=== PATIENT | male | born 1950 | race Caucasian/White ===

== ENCOUNTER → 2017-06-12 | Outpatient (CLI) | payer MEDICARE, OTHER ==
--- NOTE | 2017-06-12 08:45 | MR ---
EXAMINATION TYPE: MR cspine/tspine/lspine wo con DATE OF EXAM: 06/12/2017 COMPARISON: Outside MRI thoracic spine March 15, 2013 HISTORY: Cervical and thoracic spine pain and lumbago per order. Neck pain for one year causing pain and numbness and tingling in hands and feet. Mid back pain for 5 to 6 years. Low back pain for 10 yea rs causing pain into right lower extremity all per patient. TECHNIQUE: Multiplanar, multisequence imaging of the cervical, thoracic, and lumbar spine are all per formed without IV contrast. FINDINGS: C-SPINE: FINDINGS: Sagittal images of the cervical spine show the craniocervical junction to appear within nor mal limits. The cervical and upper thoracic spinal cord is normal in course, caliber, and signal. V ertebral alignment is anatomic. The vertebral body heights are normal. There is mild disc space narr owing C4-C5 and C5-C6 levels. Small posterior disc herniations are seen at C5-C6 and C6-C7 levels on sagittal images. Mild anterior spurring lower cervical levels is noted. The bone marrow signal intens ity is within normal limits. Axial images show the C2-C3 level to appear within normal limits. Axial images at C3-C4 level shows central disc protrusion and uncovertebral facet degenerative change s causing mild to moderate left-sided neural foraminal narrowing. Right-sided neural foramen is paten t. Axial images at C4-C5 level show uncovertebral facet degenerative changes bilaterally with right para central disc protrusion effacing anterior thecal sac, there is moderate left and mild right-sided [place] ral foraminal narrowing at this level identified. Axial images at C5-C6 level show broad-based central disc protrusion effacing anterior thecal sac and causing mild to moderate left greater than right neural foraminal narrowing. Axial images at C6-C7 level show focal right paracentral/foraminal disc protrusion on axial image 18 effacing anterolateral thecal sac and causing fairly advanced right-sided neural foraminal narrowing. Left-sided neural foramen is patent. Axial images at C7-T1 level are felt within normal limits. IMPRESSION: Multilevel degenerative changes in cervical spine as detailed above, attention to C6-C7 l evel where most prominent disc herniation is effacing the anterolateral thecal sac and causes advance d right-sided neural foraminal narrowing. T-SPINE: FINDINGS: Spinal cord shows normal course, caliber, and signal as it courses the thoracic spine. Mil d height loss or prominent Schmorl node superior T6 endplate is redemonstrated Vertebral body heights and alignment otherwise are satisfactory. Disc space heights are preserved. No large posterior disc herniations are seen on sagittal images. There is mild multilevel anterior spurring seen. Bone marrow signal intensity is maintained. Review of the axial images shows facet degenerative changes and ligamentum flavum hypertrophy and low er thoracic levels mildly effacing posterior lateral thecal sac otherwise are felt within normal limi ts. Note is made of ectatic descending thoracic aorta measuring up to 3.3 cm in diameter axial image 18 series 1001 and 3.5 cm in diameter near diaphragmatic hiatus axial image 7. Findings similar to pr ior. There is 2.5 cm left posterior subcutaneous fluid collection axial image 18 series 1001 presumed benign or dermatologic in origin, similar lesion was seen right of midline on prior study as lesion abuts skin surface. IMPRESSION: Mild multilevel spurring. Facet arthropathy lower thoracic levels. Ectasia and mild aneu rysmal change of descending thoracic aorta. L-SPINE: Sagittal images of the lumbar spine show vertebral body heights and alignment to appear satisfactory. Multilevel disc desiccation is present. There is mild to moderate disc space narrowing L3-L4 and L4- L5 levels. Mild disc space narrowing L5-S1 level as seen. Posterior disc herniations are effacing ant erior thecal sac L3-L4 through L5-S1 levels on sagittal images . The conus medullaris is normal in po sition and signal ending at L1-L2 level. The bone marrow signal intensity is within normal limits. M ild multilevel anterior spurring is seen. Axial images show the T12-L1, L1-L2, and L2-L3 levels all to appear within normal limits. Axial images at L3-L4 level show moderate broad-based posterior disc protrusion and mild facet degene rative changes bilaterally. There is mild effacement anterior thecal sac. There is moderate right and mild to moderate left-sided anterior inferior neural foraminal narrowing. Increased signal posterior ly consistent with annular tear is noted. Axial images at L4-L5 level show mild to moderate left greater than right facet degenerative changes bilaterally. There is moderate broad disc bulge seen. There is moderate left and mild to moderate rig ht-sided anterior inferior neural foraminal narrowing at this level identified. Axial images at L5-S1 level show moderate facet degenerative changes bilaterally. There is moderate b road disc bulge with right foraminal disc protrusion component. Spinal canal is preserved as there is prominence of epidural fat at this level. There is moderate right and mild left-sided neural foramin al narrowing at this level identified. There is 9 mm round T2 hyperintense lesion in right kidney axial image 17 favoring simple cysts lower pole level. There is focal aneurysm of the infrarenal abdominal aorta measuring 4.3 x 3.6 cm on axia l image 17 noted. 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 IMPRESSION: Multilevel degenerative changes in the mid to lower lumbar spine as detailed above. Note is made of 4.3 cm infrarenal abdominal aortic aneurysm. A Yellow message has been communicated to Garfield Zimmerman MD via the [employer] system on 06/12/2017 8:42 AM, Message ID [id number].
== END | disposition home or self-care (01) ==
LOC: RADMRIMAIN 06:50
PROVIDERS: ATTEND Psychiatry & Neurology Pain Medicine
DX: M50.321 Other cervical disc degeneration at C4-C5 level (principal); M50.223 Other cervical disc displacement at C6-C7 level; M12.88 Other specific arthropathies, not elsewhere classified, other specified site; I71.2 Thoracic aortic aneurysm, without rupture; I71.4 Abdominal aortic aneurysm, without rupture; M51.36 Other intervertebral disc degeneration, lumbar region
CPT/HCPCS: 72141; 72146; 72148

== ENCOUNTER → 2017-07-04 | Outpatient (CLI) | payer MEDICARE, OTHER ==
--- NOTE | 2017-07-04 12:56 | ECHOS ---
STRESS ECHOCARDIOGRAM INDICATIONS: Fatigue MEDICATIONS: Atorvastatin, aspirin, Tramadol, lisinopril, ranitidine. BASELINE HEART RATE: 87 BASELINE BLOOD PRESSURE: 141/78 MAXIMUM HEART RATE: 141 MAXIMUM BLOOD PRESSURE: 184/74 85% MPHR: 131 100% MPHR: 154 METS: 7.0 MAXIMUM STAGE REACHED: 2 TOTAL EXERCISE TIME: 5:00 CLINICAL INFORMATION: Patient was exercised for a total period of 5 minutes. A peak heart rate of 141, was achieved. Maximum blood pressure of 184/74 mmHg was noted. The resting EKG shows normal sinus rhythm with normal CA interval and QRS duration and normal ST-T waves. No ST-segment depression suggestive of ischemia is noted. No dysrhythmias are noted. The baseline echocardiographic images reveals normal left ventricular chamber size with normal left ventricular systolic function. In the immediate post exercise period normal increase in the wall thickness and contractility is noted. FINAL IMPRESSION: 1. This stress echocardiographic study is negative for stress-induced ischemia. 2. EKG portion of the stress test is not suggestive of ischemia. 3. Patient's exercise tolerance is average. MMODL / IJN: [id number] /
== END | disposition home or self-care (01) ==
LOC: RADNMMAIN 09:34
PROVIDERS: ATTEND Family Medicine
DX: I63.9 Cerebral infarction, unspecified (principal); I10 Essential (primary) hypertension; R53.83 Other fatigue; R06.02 Shortness of breath
CPT/HCPCS: 93017; 93350

== ENCOUNTER → 2018-11-03 | Outpatient (CLI) | payer MEDICARE, OTHER ==
--- NOTE | 2018-11-04 08:44 | US ---
EXAMINATION TYPE: US kidneys/renal and bladder DATE OF EXAM: 11/03/2018 COMPARISON: 06/12/2017 MRI CLINICAL HISTORY: N28.1 Renal Cyst. EXAM MEASUREMENTS: Right Kidney: 10.8 x 4.8 x 5.3 cm Left Kidney: 11.5 x 5.4 x 4.8 cm Post Void Residual Volume: 323 mL Right Kidney: cyst measuring 1.4 x 1.2 x 1.4cm. No hydronephrosis. Left Kidney: No hydronephrosis or nephrolithiasis. Bladder: dependant debris Bilateral Jets seen: Left jet seen, right not visualized Normal Post Void Residual: no, 323 ml There is no evidence for hydronephrosis at this point in time. No nephrolithiasis is seen. No gaudencio s are identified on the left. The urinary bladder demonstrates dependent debris. Bilateral ureteral jets are not seen. IMPRESSION: 1. Corresponding to the finding on the prior MRI there is a benign-appearing 1.4 cm right renal cyst. 2. Dependent debris within the urinary bladder. Correlate with urinalysis for cystitis or hematuria. 3. Abnormal post void residual within the urinary bladder with a volume of 323 mL postvoid.
== END | disposition home or self-care (01) ==
LOC: RADUSWWP 15:58
PROVIDERS: ATTEND Urology
DX: N28.1 Cyst of kidney, acquired (principal); R93.49 Abnormal radiologic findings on diagnostic imaging of other urinary organs; Z88.5 Allergy status to narcotic agent
CPT/HCPCS: 76770

== ENCOUNTER 2020-07-26 05:46 | Inpatient (IN) | payer MEDICARE, OTHER ==
[2020-07-22 10:18] VITALS: BMI 27.2
[2020-07-26] MEDS ORDERED: SODIUM CHLORIDE 0.9% 1,000 ML in EMPTY BAG 1 BAG IV ONE (05:47)
[2020-07-26] MEDS ORDERED: ALPRAZolam 0.25 MG TAB PO PRN (05:47)
[2020-07-26] MEDS ORDERED: ALPRAZolam 0.5 MG TAB PO PRN (05:47)
[2020-07-26] MEDS ORDERED: ZOLPIDEM 5 MG TAB PO PRN (05:47)
[2020-07-26] MEDS ORDERED: ceFAZolin 3 GM in SODIUM CHLORIDE 0.9% 100 ML IVPB PRN (07:00)
[2020-07-26 07:12] LABS: Basophils # (A) 0.1 k/uL (0-0.2); Basophils % (A) 1 %; Eosinophils # (A) 0.3 k/uL (0-0.7); Eosinophils % (A) 4 %; HCT 43.5 % (39.0-53.0); HGB 14.6 gm/dL (13.0-17.5); Lymphocytes # (A) 1.9 k/uL (1.0-4.8); Lymphocytes % (A) 26 %; MCH 31.7 pg (25.0-35.0); MCHC 33.7 g/dL (31.0-37.0); MCV 93.9 fL (80.0-100.0); Mean Platelet Volume 7.2; Monocytes # (A) 0.4 k/uL (0-1.0); Monocytes % (A) 6 %; Neutrophils # (A) 4.5 k/uL (1.3-7.7); Neutrophils % (A) 62 %; Platelet Count 214 k/uL (150-450); RBC 4.63 m/uL (4.30-5.90); RDW 13.1 % (11.5-15.5); WBC 7.3 k/uL (3.8-10.6)
[2020-07-26] MEDS ORDERED: LIDOCAINE 1% INJ 10MG/ML (20 ML MDV) ONE ×2 (07:14→07:30)
[2020-07-26 07:22] LABS: Calcium 9.8 mg/dL (8.4-10.2); Potassium 4.7 mmol/L (3.5-5.1)
[2020-07-26 07:30] LABS: Glucose,Whole Blood 105 mg/dL (75-99)
[2020-07-26] MEDS ORDERED: NEOSTIGMINE 1 MG/ML 10 ML VIAL ONE (07:30)
[2020-07-26] MEDS ORDERED: PROPOFOL 10 MG/ML 20 ML VIAL IV ONE (07:30)
[2020-07-26] MEDS ORDERED: fentaNYL (PF) 50 MCG/ML 2 ML AMP ONE (07:30)
[2020-07-26] MEDS ORDERED: HEPARIN SODIUM,PORCINE 5,000 UNIT/ML 1 ML VIAL ONE (07:30)
[2020-07-26] MEDS ORDERED: SUCCINYLCHOLINE CHLORIDE 100 MG/5 ML SYR IV ONE (07:30)
[2020-07-26] MEDS ORDERED: MIDAZOLAM 2 MG/2 ML VIAL ONE (07:30)
[2020-07-26] MEDS ORDERED: GLYCOPYRROLATE 0.2 MG/ML 2 ML VIAL ONE (07:30)
[2020-07-26] MEDS ORDERED: PROTAMINE SULFATE 10 MG/ML 5 ML VIAL IV ONE (07:30)
[2020-07-26] MEDS ORDERED: METOPROLOL TARTRATE 5 MG/5 ML VIAL IVP ONE (07:30)
[2020-07-26] MEDS ORDERED: ROCURONIUM 10 MG/ML (5 ML VIAL) IV ONE (07:30)
[2020-07-26] MEDS ORDERED: PHENYLEPHRINE-0.9% NACL SYG 1,000 MCG/10 ML SYRINGE ONE (07:30)
[2020-07-26] MEDS ORDERED: ePHEDrine SULFATE/0.9% NACL/PF 50 MG/5 ML SYRINGE IV ONE (07:30)
--- NOTE | 2020-07-26 07:48 | P.GSHP ---
History of Present Illness H&P Date: 07/26/20 Chief Complaint: AAA 69-year-old gentleman with history of AAA presents to the hospital secondary to enlarged aneurysm measuring 5.[address] angiogram in need of endovascular aortic repair. Currently he denies any abdominal pain or back pain. Denies any fevers, chills, chest pain or shortness of breath. After review of his computed tomography scan he is a good candidate for endovascular aortic repair and presents today for such procedure. - Review of Systems All systems: negative (What is mentioned in HPI or past medical history) Past Medical History Past Medical History: COPD, CVA/TIA, Hyperlipidemia, Hypertension Additional Past Medical History / Comment(s): pre diabetes, renal cyst, back pain, states stroke was found on CT scan, no residual effects History of Any Multi-Drug Resistant Organisms: None Reported Past Surgical History: Appendectomy, Hernia Repair Additional Past Surgical History / Comment(s): hernia surgery x4, rt testicle removed during one hernia sx, colonoscopies, cyst removed from back Past Anesthesia/Blood Transfusion Reactions: No Reported Reaction Past Psychological History: No Psychological Hx Reported Smoking Status: Current every day smoker Past Alcohol Use History: Occasional Additional Past Alcohol Use History / Comment(s): states was smoking 2 packs daily, now down to 2 packs in one week Past Drug Use History: None Reported - Past Family History Mother Family Medical History: Cancer Father Family Medical History: Cancer Medications and Allergies Home Medications Medication Instructions Recorded Confirmed Type Aspirin [Adult Low Dose Aspirin EC] 81 mg PO DAILY 07/22/20 07/26/20 History Atorvastatin [Lipitor] 10 mg PO DAILY 07/22/20 07/26/20 History Cholecalciferol (Vitamin D3) 125 mcg PO DAILY 07/22/20 07/26/20 History [Vitamin D3 (5000 Iu)] Lisinopril [Zestril] 10 mg PO DAILY 07/22/20 07/26/20 History Multivitamins, Thera [Multivitamin 1 tab PO DAILY 07/22/20 07/26/20 History (formulary)] traMADol HCL 50 mg PO BID 07/22/20 07/26/20 History Allergies Allergy/AdvReac Type Severity Reaction Status Date / Time hydrocodone [From Vicodin] AdvReac Dyspnea Verified 01/08/19 10:08 Surgical - Exam Vital Signs Temp Pulse Resp BP Pulse Ox 98.6 F 64 16 144/80 97 07/26/20 06:15 07/26/20 06:15 07/26/20 06:15 07/26/20 06:15 07/26/20 06:15 - General well developed, well nourished, no distress - Eyes PERRL - Neck no masses, no bruits - Respiratory normal expansion, normal respiratory effort - Cardiovascular Rhythm: regular - Abdomen Abdomen: soft, non tender - Integumentary no rash - Neurologic normal coordination, normal sensation - Musculoskeletal normal gait - Psychiatric oriented to time, oriented to person, oriented to place, speech is normal Results - Labs 07/26/20 06:12 07/26/20 06:12 Abnormal Lab Results - Last 24 Hours (Table) 07/26/20 07/26/20 Range/Units 06:12 07:22 BUN 23 H (9-20) mg/dL Glucose 107 H (74-99) mg/dL POC Glucose (mg/dL) 105 H (75-99) mg/dL Diabetes panel 07/26/20 Range/Units 06:12 Sodium 140 (137-145) mmol/L Potassium 4.7 (3.5-5.1) mmol/L Chloride 107 (98-107) mmol/L Carbon Dioxide 25 (22-30) mmol/L BUN 23 H (9-20) mg/dL Creatinine 0.99 (0.66-1.25) mg/dL Glucose 107 H (74-99) mg/dL Calcium 9.8 (8.4-10.2) mg/dL Calcium panel 07/26/20 Range/Units 06:12 Calcium 9.8 (8.4-10.2) mg/dL Pituitary panel 07/26/20 Range/Units 06:12 Sodium 140 (137-145) mmol/L Potassium 4.7 (3.5-5.1) mmol/L Chloride 107 (98-107) mmol/L Carbon Dioxide 25 (22-30) mmol/L BUN 23 H (9-20) mg/dL Creatinine 0.99 (0.66-1.25) mg/dL Glucose 107 H (74-99) mg/dL Calcium 9.8 (8.4-10.2) mg/dL Adrenal panel 07/26/20 Range/Units 06:12 Sodium 140 (137-145) mmol/L Potassium 4.7 (3.5-5.1) mmol/L Chloride 107 (98-107) mmol/L Carbon Dioxide 25 (22-30) mmol/L BUN 23 H (9-20) mg/dL Creatinine 0.99 (0.66-1.25) mg/dL Glucose 107 H (74-99) mg/dL Calcium 9.8 (8.4-10.2) mg/dL Assessment and Plan Assessment: 5.8 cm infrarenal AAA Plan: To the [employer]onitro[employer] Operator for endovascular aortic repair
[2020-07-26] MEDS ORDERED: IOPAMIDOL-250 100ML BTL INTRAARTER ONE (09:12)
--- NOTE | 2020-07-26 10:03 | P.OP ---
Description of Procedure: Date: 07/26/2020 Preoperative diagnosis: Asymptomatic Infrarenal 8.8 cm AAA Postoperative diagnosis: Same Procedure: 1. Percutaneous Endovascular aortic repair with [place] device. 2. Ultrasound-guided bilateral common femoral artery access Surgeon: Nathalie VIGIL Anesthesia: General Estimated blood loss: 15 mL Complications: None Condition: Stable Disposition: Palpable DP and PT pulses Indications: 69-year-old gentleman with history of AAA with recent increase in size to 5.8 cm presents to the hospital for endovascular aortic repair. Operative narrative: After written and informed consent was obtained from the patient all risks benefits and complications were described the patient was brought to the [employer]er and laid in a supine position. The area of the groins were prepped and draped in usual sterile fashion after appropriate anesthetic was performed per the anesthesiologist. A timeout was performed in normal fashion and antibiotics were administered prior to incisions. Utilizing ultrasound bilateral common femoral arteries were visualized demonstrating patency with minimal calcification. Under ultrasound guidance utilizing a multipurpose needle bilateral common femoral arteries were accessed and guidewire was placed followed by deployment of 2 Perclose closure devices for each femoral artery. Utilizing Seldinger technique and 8-Bhut[place] sheath was then placed and patient was administered heparin and followed with ACTs. 035 Glidewire was then placed up the right femoral sheath and exchanged for a Lunderquist wire through an angled glide catheter. The left femoral artery was then utilized and guidewire was placed followed by pigtail catheter and aortogram was obtained. Utilizing the Lunderquist wire a 26 mm main body device was then loaded over the guidewire after the 8-[place]ut[place] sheath was removed. Delivery system was then placed 1 cm proximal to the intended landing site and the aortic body was oriented for appropriate access for the contralateral limb. Delivery system was then retracted out of the sheath and the aortic body radiopaque markers were verified to be in the correct position. First segment of the graft was then deployed in normal fashion by releasing and pulling the knob in normal fashion. Balloon injection port was then inflated utilizing a 4- 1 saline contrast mixture in order to open the mid crown. Balloon was then deflated. Precise positioning was then performed with utilizing the radiopaque markers and parallax was removed and our to land at the renal arteries. Pigtail catheter was then retracted away from the proximal stent and the proximal stent was released in normal fashion. Polymer was then utilized and filled through the polymer port which was visualized under fluoroscopy. The stiff Lunderquist wire was then retracted within the ipsilateral limb. Attention was then placed to accessing the contralateral limb. Utilizing the Glidewire and angled glide catheter the contralateral limb was accessed and pigtail catheter was placed. Pigtail catheter was then spun to verify intragraft cannulation. A stiff wire was then placed within the pigtail catheter and retrograde angiogram was obtained demonstrating the internal iliac artery takeoff. Measurements were obtained and a 22 x 140 mm Ovation limb was chosen to be deployed and deployed in normal fashion. Once completed the aortic main body was completely deployed in normal fashion. Utilizing the balloon balloon angioplasty was performed at the ring to further mold the polymer to the aortic neck. Once completed the aortic body deployment sheath was removed in normal fashion. Pigtail catheter was then placed over the Lunderquist wire and retrograde angiogram was obtained with measurements to the internal iliac artery on the ipsilateral limb. A 18 x 140 mm Ovation limb was chosen and deployed in normal fashion. Once completed two 12 x 40mm balloons were placed up each iliac limb and balloon angioplasty was performed through its entirety. Once completed balloons were removed and pigtail catheter was placed above the graft and final angiogram was obtained d emonstrating exclusion of the aneurysm with no evidence of endoleak's. All guidewires and catheters were then removed and the Perclose closure devices were closed in normal fashion. The areas were then cleansed and dressings were placed. The patient tolerated procedure well and had palpable DP and PT pulses and was sent to PACU for recovery.
[2020-07-26 10:59] LABS: Glucose,Whole Blood 132 mg/dL (75-99)
[2020-07-26] MEDS ORDERED: SODIUM CHLORIDE 0.9% 1,000 ML IV ONE (11:15)
[2020-07-26] MEDS ORDERED: KETOROLAC 15 MG/ML 1 ML VIAL IVP ONE (11:26)
[2020-07-26] MEDS: HYDROmorphone 0.5 MG/0.5 ML SYRINGE IVP ONE ×2 (11:27→13:06)
--- NOTE | 2020-07-26 11:36 | IR ---
EXAMINATION TYPE: IR stent intravas non coronary DATE OF EXAM: 07/26/2020 COMPARISON: NONE HISTORY: Fluoroscopy time. Fluoroscopy was provided to the referring clinician.
--- NOTE | 2020-07-26 17:01 | P.CONS ---
History of Present Illness - Reason for Consult Consult date: 07/26/20 - Chief Complaint med mgmt - History of Present Illness 69 year old man with history of COPD, CVA/TIA, HTN, pre-DM, current smoker, chronic back pain presented for elective AAA repair. Medicine consulted by vascular surgery for medical management. Patients only complaint is of aches and pains in his back, legs, and hips, which are chronic. He is feeling well s/p endo-graft placement. He denies f/c, n/v/c/d, cp, abd pain, palps, dyspnea, cough, dysuria, dyschezia, numbness/weakness of extremities. Pt is HDS on my evaluation; CBC and BMP are unremarkable. Review of Systems All Systems reviewed and pertinent positives and negatives noted in HPI, all other symptoms are negative Past Medical History Past Medical History: COPD, CVA/TIA, Hyperlipidemia, Hypertension Additional Past Medical History / Comment(s): pre diabetes, renal cyst, back pain, states stroke was found on CT scan, no residual effects History of Any Multi-Drug Resistant Organisms: None Reported Past Surgical History: Appendectomy, Hernia Repair Additional Past Surgical History / Comment(s): hernia surgery x4, rt testicle removed during one hernia sx, colonoscopies, cyst removed from back Past Anesthesia/Blood Transfusion Reactions: No Reported Reaction Past Psychological History: No Psychological Hx Reported Smoking Status: Current every day smoker Past Alcohol Use History: Occasional Additional Past Alcohol Use History / Comment(s): states was smoking 2 packs daily, now down to 2 packs in one week Past Drug Use History: None Reported - Past Family History Mother Family Medical History: Cancer Father Family Medical History: Cancer Medications and Allergies Home Medications Medication Instructions Recorded Confirmed Type Aspirin [Adult Low Dose Aspirin EC] 81 mg PO DAILY 07/22/20 07/26/20 History Atorvastatin [Lipitor] 10 mg PO DAILY 07/22/20 07/26/20 History Cholecalciferol (Vitamin D3) 125 mcg PO DAILY 07/22/20 07/26/20 History [Vitamin D3 (5000 Iu)] Lisinopril [Zestril] 10 mg PO DAILY 07/22/20 07/26/20 History Multivitamins, Thera [Multivitamin 1 tab PO DAILY 07/22/20 07/26/20 History (formulary)] traMADol HCL 50 mg PO BID 07/22/20 07/26/20 History Allergies Allergy/AdvReac Type Severity Reaction Status Date / Time hydrocodone [From Vicodin] AdvReac Dyspnea Verified 01/08/19 10:08 Physical Exam Osteopathic Statement: *. No significant issues noted on an osteopathic structural exam other than those noted in the History and Physical/Consult. Vitals: Vital Signs Temp Pulse Resp BP BP Pulse Ox 07/26/20 16:12 60 18 07/26/20 15:00 97.9 F 60 18 137/76 96 07/26/20 14:00 61 18 134/73 97 07/26/20 13:30 53 L 18 127/69 98 07/26/20 13:00 54 L 18 140/69 97 07/26/20 12:30 54 L 18 134/80 97 07/26/20 12:01 61 18 154/66 97 07/26/20 11:30 69 18 152/66 96 07/26/20 11:15 57 L 18 154/68 95 07/26/20 11:01 61 16 159/67 94 L 07/26/20 10:45 66 18 154/66 94 L 07/26/20 10:30 71 16 173/69 95 07/26/20 10:15 67 16 170/68 98 07/26/20 10:01 97.4 F L 74 16 160/80 99 07/26/20 06:15 98.6 F 64 16 144/80 143/82 97 Intake and Output 07/26/20 07/26/20 07/26/20 06:59 14:59 22:59 Intake Total 50 400 Output Total 1050 Balance 50 -650 Intake: IV 50 400 Output: Urine 1050 Other: Weight 85.6 kg Gen: awake, alert HEENT: normocephalic, atraumatic, good hearing acuity, moist mucous membranes Resp: good air exchange, breathing comfortably with no accessory muscle use, clear to auscultation bilaterally without wheezes CVS: good distal perfusion x 4, regular rate and rhythm without murmurs GI: soft, NTTP, ND, normal bowel sounds : no SPT, no CVAT, guajardo catheter not present MSK: no pitting edema, no clubbing Neuro: non-focal, moving all extremities Psych: cooperative, euthymic mood Results CBC & Chem 7: 07/26/20 06:12 07/26/20 06:12 Labs: Abnormal Lab Results - Last 24 Hours (Table) 07/26/20 07/26/20 07/26/20 Range/Units 06:12 07:22 10:55 BUN 23 H (9-20) mg/dL Glucose 107 H (74-99) mg/dL POC Glucose (mg/dL) 105 H 132 H (75-99) mg/dL Assessment and Plan Assessment: 1. Hypertension 2. Hyperlipidemia 3. Pre-diabetes 4. COPD, not on medication nor home oxygen 5. Hx CVA/TIA 6. AAA s/p repair 7. Osteoarthritis 8. Chronic Back Pain 9. Nicotine Abuse 69 year old man with history of HTN/HLD/pre-DM, COPD, Hx CVA/TIA, OA, chronic back pain presented for elective AAA repair of 5.8cm aneurysm and is now s/p successful endograft with c/d/i femoral access site. Plan: - continue home lisinopril - continue home atorvastatin at 10mg qHS - patient was counseled on benefit of increasing this dosage to 40mg or higher given elevated ASCVD risk in setting of HLD and Hx of CVA/TIA; however, he would like to discuss this further with his PCP - recommendations to discuss this with PCP will be provided upon discharge - daily fasting glucose - duoneb PRN order will be placed if required - continue ASA - pain control and DVT ppx per primary team - nicotine cessation counseling given - patient may have 7mg/24hr nicotine patch if requested Full Code
[2020-07-26] MEDS: HYDROcodone/APAP 5-325MG 1 EACH TAB PO PRN ×2 (17:09→21:18)
[2020-07-26] MEDS: SODIUM CHLORIDE 0.9% 1,000 ML IV SCH (17:11)
[2020-07-27] MEDS: HYDROcodone/APAP 5-325MG 1 EACH TAB PO PRN ×2 (04:36→08:57)
[2020-07-27] MEDS: SODIUM CHLORIDE 0.9% 1,000 ML IV SCH (04:37)
[2020-07-27 08:04] LABS: African American GFR (CKD) >90 (>60 ml/min/1.73 sqM); Non-African American GFR(CKD) >90 (>60 ml/min/1.73 sqM)
[2020-07-27] MEDS ORDERED: ASPIRIN 81 MG PO SCH (09:00)
[2020-07-27] MEDS ORDERED: lisinopriL 10 MG TAB PO SCH (09:00)
[2020-07-27] MEDS ORDERED: ATORVASTATIN 10 MG TAB PO SCH (09:00)
[2020-07-27 09:22] VITALS: BP 130/74; PULSE 78; RESP 20; TEMP 98.6
--- NOTE | 2020-07-27 10:36 | P.PN ---
Subjective Progress Note Date: 07/27/20 Principal diagnosis: AAA Patient is a 69 yo CM with a hx of prior TIA, HTN, on going tobacco abuse, and pre-diabetes who presented for elective AAA repair, this was completed on 07/27 via percutaneous endovascular aortic repair. He tolerated the procedure without an immediate post-op complications. Patient seen and examined at bedside. No sam pain, SOB, [place], vomiting, belly pain or groin pain. He reports that he did not sleep well and is having a flair of his chronic back pain. He wants to go home. We discussed the importance of being on a high dose statin due to hx of TIA and HTN. General: non toxic, no distress, appears at stated age Derm: warm, dry Head: atraumatic, normocephalic, symmetric Eyes: EOMI, no lid lag, anicteric sclera Mouth: no lip lesion, mucus membranes moist Cardiovascular: S1S2 reg, no murmur, positive posterior tibial pulse bilateral, Lungs: CTA bilateral, no rhonchi, no rales , no accessory muscle use Abdominal: soft, nontender to palpation, no guarding, no appreciable organomegaly Ext: no gross muscle atrophy, no edema, no contractures, Dressings in place bilateral groin with no soak through. Neuro: CN II-XI grossly intact, no focal neuro deficits Psych: Alert, oriented, appropriate affect 69 yo M s/p endovascular repair of AAA. HTN, controlled - resume home lisinopril HLD - statin - disucss with PCP increasing this dose Pre DM - sugars well controlled - out patient follow-up Tobacco abuse - cessation Chronic back pain Osteoarthritis Hx CVA/TIA Patient medically optimized for discharge. Thank you for allowing us to participate in the care of this pleasant patient. Do not hesitate to contact us with questions. Someone can be reached from the [facility] hospitalist group all hours of the day at [phone] or via [employer]. Objective - Vital Signs Vital signs: Vital Signs Temp 98.6 F 07/27/20 08:00 Pulse 78 07/27/20 08:00 Resp 20 07/27/20 08:00 BP 130/74 07/27/20 08:00 Pulse Ox 93 L 07/27/20 08:00 Intake & Output 03/16/21 03/17/21 03/17/21 18:59 06:59 18:59 Intake Total 620 540 Output Total 1050 Balance -430 540 Weight 88.4 kg Intake: IV 400 Oral 220 540 Output: Urine 1050 Other: # Voids 1 # Bowel Movements 1 - Labs CBC & Chem 7: 07/26/20 06:12 07/27/20 07:32 Labs: Abnormal Lab Results - Last 24 Hours (Table) 07/26/20 Range/Units 10:55 POC Glucose (mg/dL) 132 H (75-99) mg/dL
--- NOTE | 2020-08-02 09:29 | P.DS ---
Providers Date of admission: 07/26/20 05:46 Expected date of discharge: 07/27/20 Attending physician: Armaan Zelaya DO Consults: 07/26/20 06:00 Consult to Anesthesia Routine Consulting Provider: Anesthesia,Services Consult Reason/Comments: General anesthesia for Aortic Stent procedure 07/26/20 09:53 Consult Physician Routine Consulting Provider: Hilaria Rojo Consult Reason/Comments: medical management Do you want consulting provider notified?: Yes Primary care physician: Erick Qiu - Discharge Diagnosis(es) (1) AAA (abdominal aortic aneurysm) without rupture Status: Acute Hospital Course: Underwent endovascular aortic repair without any complications. He did well overnight and was discharged the following day. Assessment: General appearance: The patient is alert, oriented, in no acute distress. HET: Head is normocephalic and atraumatic. Neck: Supple without lymphadenopathy. Trachea midline. Heart: S1 S2. Regular rate and rhythm. Lungs: No crackles or wheezes are heard. Abdomen: Soft, nontender, nondistended with bowel sounds. No peritoneal signs. No palpable organomegaly or masses. Extremities: Normal skin color and turgor. No cyanosis, rash, ulceration, clubbing, or edema. Operable bilateral radial, femoral, and dorsalis pedis pulses. Bilateral lower extremities warm to the touch. Bilateral groins with pressure dressings, removed. There is no sign of hematoma, no active bleeding. Neurological: No focal deficits. Strength and sensation are grossly intact. Assessment: 1. Postop day #1 for percutaneous endovascular aortic repair with graft 2. Abnormal aortic aneurysm, asymptomatic infrarenal 8.8 cm 3. History of hypertension 4. History of COPD 5. History CVA/TIA 6. Tobacco abuse Plan: Patient may be discharged home. He will follow-up with Dr. Zelaya in 1-2 weeks. Patient instructed not to shower, sponge bath only. Watch for signs of bleeding, infection and call office. Resume home medications. The impression and plan of care has been dictated as directed. Dr. Naranjo I performed a history and examination of this patient, discussed the same with the dictator. I agree with the dictator's note ,documented as a scribe. Any additional findings or plans will be noted. Procedures: Endovascular aortic repair Patient Condition at Discharge: Good Plan - Discharge Summary Discharge Rx Participant: Yes New Discharge Prescriptions: Continue Cholecalciferol (Vitamin D3) [Vitamin D3 (5000 Iu)] 125 mcg PO DAILY Lisinopril [Zestril] 10 mg PO DAILY Atorvastatin [Lipitor] 10 mg PO DAILY Multivitamins, Thera [Multivitamin (formulary)] 1 tab PO DAILY traMADol HCL 50 mg PO BID Aspirin [Adult Low Dose Aspirin EC] 81 mg PO DAILY Discharge Medication List Aspirin [Adult Low Dose Aspirin EC] 81 mg PO DAILY 07/22/20 [History] Atorvastatin [Lipitor] 10 mg PO DAILY 07/22/20 [History] Cholecalciferol (Vitamin D3) [Vitamin D3 (5000 Iu)] 125 mcg PO DAILY 07/22/20 [History] Lisinopril [Zestril] 10 mg PO DAILY 07/22/20 [History] Multivitamins, Thera [Multivitamin (formulary)] 1 tab PO DAILY 07/22/20 [History] traMADol HCL 50 mg PO BID 07/22/20 [History] Follow up Appointment(s)/Referral(s): Erick Qiu DO [Primary Care Provider] - 07/29/20 1:00 pm Armaan Zelaya DO [STAFF PHYSICIAN] - 08/02/20 12:45 pm Patient Instructions/Handouts: Endovascular Aneurysm Repair of Abdominal Aorta (DC) Activity/Diet/Wound Care/Special Instructions: Special Instructions: We encourage you to discuss with your family doctor increasing your Lipitor dose. No heavy lifting or strenuous activity. No showering, sponge bath only. Watch bilateral groin sites for bleeding, infection, temperature greater than 100.4 and call office or go to Emergency Department if any of these signs or symptoms. Discharge Disposition: HOME SELF-CARE
== END 2020-07-27 11:52 | disposition home or self-care (01) | DRG 269 ==
LOC: 2ORMAIN 05:46 → 3SCARD 13:48
PROVIDERS: ADMIT Surgery; ATTEND Surgery
PROC: 04V03DZ Restriction of Abdominal Aorta with Intraluminal Device, Percutaneous Approach (ICD-10-PCS; principal; 2020-07-26 07:30)
DX: I71.4 Abdominal aortic aneurysm, without rupture (principal); J44.9 Chronic obstructive pulmonary disease, unspecified; E78.5 Hyperlipidemia, unspecified; I10 Essential (primary) hypertension; F17.210 Nicotine dependence, cigarettes, uncomplicated; G89.29 Other chronic pain; M54.9 Dorsalgia, unspecified; M19.90 Unspecified osteoarthritis, unspecified site; R73.03 Prediabetes; Z90.79 Acquired absence of other genital organ(s); Z79.899 Other long term (current) drug therapy; Z79.82 Long term (current) use of aspirin; Z86.73 Personal history of transient ischemic attack (TIA), and cerebral infarction without residual deficits; Z90.49 Acquired absence of other specified parts of digestive tract; Z98.890 Other specified postprocedural states; Z88.5 Allergy status to narcotic agent; Z80.9 Family history of malignant neoplasm, unspecified
CPT/HCPCS: 34705; 80048; 82565; 85025; 86850; 86900; 86901

== ENCOUNTER → 2020-08-31 | Outpatient (CLI) | payer MEDICARE, OTHER ==
[2020-08-31 07:42] LABS: African American GFR (CKD) >90 (>60 ml/min/1.73 sqM); Blood Urea Nitrogen 20 mg/dL (9-20); Non-African American GFR(CKD) 84 (>60 ml/min/1.73 sqM)
--- NOTE | 2020-08-31 09:59 | CT ---
EXAMINATION TYPE: CT angio abdomen pelvis DATE OF EXAM: 08/31/2020 COMPARISON: None. HISTORY: AAA CT DLP: 2739 mGycm, Automated Exposure Control for Dose Reduction was Utilized. CONTRAST: CTA scan of the abdomen and pelvis is performed with oral and without and with IV Contrast, patient i njected with 100 ml mL of Isovue 370. FINDINGS: VASCULAR: There is aortobiiliac stent graft beginning near diaphragmatic hiatus through AAA of the di stal abdominal aorta. [place] AAA measures up to 5.4 cm in AP diameter axial image 34 series 6. Postcontrast images show satisfactory enhancement of the stent graft along with patent celiac artery and SMA, there is some narrowing of celiac artery near 50% sagittal image 119 likely from median arcu ate ligament. Mild to moderate mixed plaque at origin of the SMA without stenosis is present. Patent bilateral single renal arteries without significant stenosis, early branching of left renal artery ri ght after origin noted coronal image 70 series 15. There is some extraluminal opacification in the distal abdominal aorta left anterior aspect beginning at axial image 34 series 12 extending inferiorly through image 40 corresponding to coronal image 59 and sagittal image 111. Suspected tiny anterior feeding vessel seen sagittal image 111 appears to co mmunicate with the [place] lumen narrowing sagittal images 112 and 113. Delayed images do not show inc reased intraluminal contrast enhancement outside stent graft. There is good filling into the iliac bi furcation with moderate to severe calcified plaque extending into the femoral arteries and the bilate ral groin. No significant stenosis clearly identified. Length of aneurysm roughly 7 to 8 cm sagittal image 102 series 17. LUNG BASES: Dependent atelectasis in both bases. Additional focal linear atelectasis and/or scarring left anterior lung base LIVER/GB: There are a few simple appearing thin-walled cysts in the hepatic dome measuring up to 4.4 cm long axis.. PANCREAS: No significant abnormality is seen. SPLEEN: No significant abnormality is seen. ADRENALS: Low dense thickening to both adrenal glands with slightly more nodular component on the lef t image 21 series 12. Hounsfield units average less than [address] consistent with benign hyperplasia and/or tiny adenoma. KIDNEYS: Noncontrast images show no renal calculi bilaterally. Postcontrast images show simple appear ing thin-walled 1.0 cm cyst lower pole right kidney image 38 series 18. No hydronephrosis seen bilaterally. Bladder shows mild to moderate distention with lobulated contour. BOWEL: Slightly low-lying cecum into the right pelvis. Scattered diverticula throughout the colon wi th more prominent diverticulosis in the sigmoid colon. PROSTATE/SEMINAL VESICLES: Suspected TURP type defect superior prostate centrally. Prostate not signi ficantly enlarged. LYMPH NODES: No greater than 1cm abdominal or pelvic lymph nodes are appreciated. OSSEOUS STRUCTURES: No significant abnormality is seen. OTHER: No significant additional abnormality is seen. IMPRESSION: Patent aortobiiliac stent graft through [place] AAA measuring up to 5.4 cm on this study. There is type II endoleak with small anterior feeding vessel noted.
== END | disposition home or self-care (01) ==
LOC: RADCTMAIN 07:01
PROVIDERS: ATTEND Surgery
DX: I71.4 Abdominal aortic aneurysm, without rupture (principal)
CPT/HCPCS: 82565; 84520; 74174; Q9967

== ENCOUNTER → 2021-02-13 | Outpatient (CLI) | payer MEDICARE, OTHER ==
--- NOTE | 2021-02-13 10:41 | CT ---
EXAMINATION TYPE: CT angio abdomen pelvis DATE OF EXAM: 02/13/2021 COMPARISON: CTA August 31, 2020 HISTORY: Abdominal Aortic Aneurysm CT DLP: 4.9 mGycm, Automated Exposure Control for Dose Reduction was Utilized. CONTRAST: CT scan of the abdomen and pelvis is performed without oral and without and with IV Contrast, patient injected with 100 mL of Isovue 370. Stent graft protocol with 3-D reconstructed images created on an independent workstation and reviewed FINDINGS: VASCULAR: There is aortobiiliac stent graft beginning near diaphragmatic hiatus through AAA of the d istal abdominal aorta redemonstrated. Circle AAA measures up to 5.5 cm in AP diameter axial image 33 series 3 current study. Postcontrast images show satisfactory enhancement of the stent graft along with patent celiac artery and SMA similar to prior, there is some narrowing of celiac artery on the 50% sagittal image 29 likel y from median arcuate ligament. This is less prominent than prior. Mild to moderate mixed plaque at origin of the SMA without stenosis is present. Patent bilateral single renal arteries without signifi cant stenosis, early branching of left renal artery right after origin is redemonstrated. There is some extraluminal opacification in the distal abdominal aorta left lateral aspect beginning at axial image 32 series 7 extending inferiorly again most prominent image 33 corresponding to platt l image 17 and sagittal image 27 series 15. Suspected tiny anterior feeding vessel seen sagittal imag e 27 current study similar to prior . Delayed images do not show increased intraluminal contrast enha ncement outside stent graft in the resighini aorta. Length of aneurysm roughly 7 to 8 cm sagittal image 25 series 15 similar to prior. There is good filling into the iliac bifurcation with moderate to severe calcified plaque extending i nto the femoral arteries and the bilateral groin. No significant stenosis clearly identified. LUNG BASES: Mild to moderate dependent and linear atelectasis is redemonstrated. LIVER/GB: Some scattered thin-walled cysts throughout the liver are again seen. PANCREAS: No significant abnormality is seen. SPLEEN: No significant abnormality is seen. ADRENALS: Low dense thickening of both adrenal glands consistent with benign lipid rich hyperplasia i s redemonstrated. KIDNEYS: No renal calculi on noncontrast images. No concerning solid or cystic mass or hydronephrosi s seen bilaterally. Simple appearing thin-walled 1.0 cm cyst lower pole of the right kidney redemonst rated series 9 image 36 BOWEL: Sigmoid colonic diverticulosis redemonstrated. Low-lying cecum redemonstrated. PROSTATE/SEMINAL VESICLES: TURP type defect in the superior prostatic midline again seen. LYMPH NODES: No greater than 1cm abdominal or pelvic lymph nodes are appreciated. OSSEOUS STRUCTURES: Mild multilevel spurring redemonstrated. OTHER: Surgical changes from right inguinal hernia repair surgery redemonstrated. IMPRESSION: Stable or minimally enlarging resighini AAA up to 5.5 cm current study with persistent type II endoleak. Stent graft remains patent.
== END | disposition home or self-care (01) ==
LOC: RADCTMAIN 07:54
PROVIDERS: ATTEND Surgery
DX: I71.4 Abdominal aortic aneurysm, without rupture (principal)
CPT/HCPCS: 82565; 84520; 36415; 74174; Q9967

== ENCOUNTER → 2022-05-25 | Outpatient (CLI) | payer MEDICARE, OTHER ==
--- NOTE | 2022-05-27 22:30 | MR ---
EXAMINATION TYPE: MR cervical spine wo con DATE OF EXAM: 05/25/2022 INDICATION: Patient age:Male; 71 years old; Reason for study: M54.2 Cervicalgia. Cervicalgia COMPARISON: 06/12/2017 TECHNIQUE: Multi planar, multi sequence imaging was performed utilizing: T1-weighted, T2-weighted, an d turbo inversion recovery imaging of the cervical spine. IV Contrast: None FINDINGS: Alignment: The cervical vertebral bodies have preserved heights. Alignment is within normal limits [facility] justice patient positioning. Bones: Increased inversion cover signal within the left lateral facets of C3-C4. There is ankylosis o f C2-C3 facets bilaterally. The remainder of the osseous structures are grossly normal signal. Cord: The spinal cord is unremarkable with regards to their signal intensity and morphology. Discs: Multilevel disc desiccation is present. C2-C3: No significant disc pathology. The spinal canal is patent. No neural foraminal stenosis. C3-C4: A disc osteophyte complex is present with mild spinal canal stenosis. Bilateral facet and unc overtebral joint arthropathy are present with mild bilateral neural foraminal stenosis. C4-C5: No significant disc pathology. The spinal canal is patent. Bilateral facet and uncovertebral joint arthropathy are present with moderate bilateral neural foraminal stenosis. C5-C6: No significant disc pathology. The spinal canal is patent. Bilateral facet and uncovertebral joint arthropathy are present with moderate bilateral neural foraminal stenosis. C6-C7: No significant disc pathology. The spinal canal is patent. Bilateral facet and uncovertebral joint arthropathy are present with moderate right and mild left neural foraminal stenosis. C7-T1: No significant disc pathology. The spinal canal is patent. No neural foraminal stenosis. Other: High T2 focus within the jake, right to prior injury. There is mucosal thickening of the paran david sinuses. IMPRESSION: 1. No evidence for disc herniation or significant spinal canal stenosis. 2. Multilevel disc degeneration with associated osteoarthritic changes resulting in at least moderate bilateral C4-C5, C5-C6 and right C6-C7 neural foraminal stenosis 3. Active inflammation/osseous edema of the left lateral facets of C3-C4. This is likely on a degener ative basis.
== END | disposition home or self-care (01) ==
LOC: RADMRIMAIN 09:25
PROVIDERS: ATTEND Otolaryngology
DX: M50.321 Other cervical disc degeneration at C4-C5 level (principal); M47.812 Spondylosis without myelopathy or radiculopathy, cervical region; M99.71 Connective tissue and disc stenosis of intervertebral foramina of cervical region; M48.02 Spinal stenosis, cervical region
CPT/HCPCS: 72141

== ENCOUNTER → 2022-07-18 | Outpatient (CLI) | payer MEDICARE, OTHER | END | disposition home or self-care (01) | LOC: LABWHC1 13:10 | PROVIDERS: ATTEND Otolaryngology | DX: R51.9 Headache, unspecified (principal); I77.89 Other specified disorders of arteries and arterioles | CPT/HCPCS: 36415; 85652; 86038; 86140 ==

== ENCOUNTER 2023-02-17 14:32 | Emergency (ER) | payer MEDICARE, OTHER ==
--- NOTE | 2023-02-17 14:43 | ED ---
SOB HPI - General Source: patient, RN notes reviewed Mode of arrival: ambulatory Limitations: no limitations - History of Present Illness MD Complaint: shortness of breath, cough <Gregoria Kennedy - Last Filed: 02/17/23 14:38> <Orville Harper - Last Filed: 02/17/23 19:07> - General Chief Complaint: Shortness of Breath Stated Complaint: Fever Time Seen by Provider: 02/17/23 14:38 - History of Present Illness Initial Comments: This is a 72 year old male who presents to the emergency department for coughing and shortness of breath. Symptoms started 6 days ago and he feels like they are getting worse. The cough was initially productive, however it is less so at this time. He reports a history of COPD and is using his Combivent inhaler. Denies any chest pain. Also denies any sick contacts. He is unable to sleep or lay flat due to the coughing and shortness of breath, and he is sleeping in a recliner. (Gregoria Kennedy) Dictation was produced using [employer] dictation software. please excuse any grammatical, word or spelling errors. Chief Complaint: 72-year-old male presents to the emergency department for shortness of breath cough and wheezing History of Present Illness: 72-year-old male presents emergency Department with cough, shortness of breath and wheezing. He has a history of COPD. He takes he inhaler. He's been using the inhaler with some help however feels like his symptoms aren't improving fast enough. Patient has any fever or constitutional symptoms. No obvious sick contacts. Patient denies any history of heart failure. Patient continues to abuse tobacco. The ROS documented in this emergency department record has been reviewed and confirmed by me. Those systems with pertinent positive or negative responses have been documented in the HPI. All other systems are other negative and/or noncontributory. (Orville Harper) - Related Data Home Medications Medication Instructions Recorded Confirmed Aspirin [Adult Low Dose Aspirin EC] 81 mg PO DAILY 07/22/20 07/26/20 Atorvastatin [Lipitor] 10 mg PO DAILY 07/22/20 07/26/20 Cholecalciferol (Vitamin D3) 125 mcg PO DAILY 07/22/20 07/26/20 [Vitamin D3 (5000 Iu)] Multivitamins, Thera [Multivitamin 1 tab PO DAILY 07/22/20 07/26/20 (formulary)] lisinopriL [Zestril] 10 mg PO DAILY 07/22/20 07/26/20 traMADol HCL 50 mg PO BID 07/22/20 07/26/20 Previous Rx's Medication Instructions Recorded Albuterol Inhaler [Ventolin Hfa 1 - 2 puff INHALATION RT-Q6H PRN 02/17/23 Inhaler] #1 each methylPREDNISolone Dose Pack 4 mg PO DIRECTED #1 packet 02/17/23 [Medrol Dose Pack] Allergies Allergy/AdvReac Type Severity Reaction Status Date / Time hydrocodone [From Vicodin] AdvReac Dyspnea Verified 01/08/19 10:08 Review of Systems ROS Other: All systems not noted in ROS Statement are negative. <Gregoria Kennedy - Last Filed: 02/17/23 14:38> ROS Other: All systems not noted in ROS Statement are negative. <Orville Harper - Last Filed: 02/17/23 19:07> ROS Statement: Those systems with pertinent positive or pertinent negative responses have been documented in the HPI. Past Medical History Past Medical History: COPD, CVA/TIA, Hyperlipidemia, Hypertension Additional Past Medical History / Comment(s): pre diabetes, renal cyst, back pain, states stroke was found on CT scan, no residual effects History of Any Multi-Drug Resistant Organisms: None Reported Past Surgical History: Appendectomy, Hernia Repair Additional Past Surgical History / Comment(s): hernia surgery x4, rt testicle removed during one hernia sx, colonoscopies, cyst removed from back Past Anesthesia/Blood Transfusion Reactions: No Reported Reaction Past Psychological History: No Psychological Hx Reported Smoking Status: Current every day smoker Past Alcohol Use History: Occasional Additional Past Alcohol Use History / Comment(s): states was smoking 2 packs daily, now down to 2 packs in one week Past Drug Use History: None Reported - Past Family History Mother Family Medical History: Cancer Father Family Medical History: Cancer <Gregoria Kennedy - Last Filed: 02/17/23 14:38> General Exam <Gregoria Kennedy - Last Filed: 02/17/23 14:38> <Orville Harper - Last Filed: 02/17/23 19:07> - General Exam Comments Initial Comments: Visual Physical Exam Vital signs reviewed General: Well-appearing, nontoxic, no acute distress. Head: Normocephalic, atraumatic Eyes: PERRLA, EOMI ENT: Airway patent Chest: Nonlabored breathing Skin: No visual rash, normal skin tone Neuro: Alert and oriented 3 Musculoskeletal: No gross abnormalities I performed the QuickNote portion of this chart. Signed Gregoria Kennedy PA-C. (Gregoria Kennedy) PHYSICAL EXAM: General Impression: Alert and oriented x3, not in acute distress HEENT: Normocephalic atraumatic, extra-ocular movements intact, pupils equal and reactive to light bilaterally, mucous membranes moist. Cardiovascular: Heart regular rate and rhythm Chest: Able to complete full sentences, no retractions, no tachypnea, diffuse lung wheezing and rhonchi Abdomen: abdomen soft, non-tender, non-distended, no organomegaly Musculoskeletal: Pulses present and equal in all extremities, no peripheral edema Motor: no focal deficits noted Neurological: CN II-XII grossly intact, no focal motor or sensory deficits noted Skin: Intact with no visualized rashes Psych: Normal affect and mood (Orville Harper) Course Vital Signs 02/17/23 02/17/23 02/17/23 14:38 18:25 18:31 Temperature 98.5 F Pulse Rate 109 H 78 74 Respiratory 26 H Rate Blood Pressure 161/95 O2 Sat by Pulse 94 L Oximetry 02/17/23 18:52 Temperature Pulse Rate 91 Respiratory 20 Rate Blood Pressure 160/98 O2 Sat by Pulse 93 L Oximetry Medical Decision Making - Lab Data Result diagrams: 02/17/23 14:39 02/17/23 14:39 <Orville Harper - Last Filed: 02/17/23 19:07> - Medical Decision Making My EKG interpretation: Ventricular rate 80, sinus rhythm,. Interval 186, QRS 97, QTc 385. No OK prolongation, no QTC prolongation, no ST or T-wave changes noted. Overall, this EKG is unremarkable Was pt. sent in by a medical professional or institution (, [facility], [facility] [employer] [facility], urgent care, hospital, or assisted...) When possible be specific @ -No Did you speak to anyone other than the patient for history (EMS, parent, family, police, friend...)? What history was obtained from this source @ -No Did you review nursing and triage notes (agree or disagree)? Why? @ -I reviewed and agree with nursing and triage notes Were old charts reviewed (outside hosp., previous admission, EMS record, old EKG, old radiological studies, urgent care reports/EKG's, assisted records)? Report findings @ -No old charts were reviewed Differential Diagnosis (chest pain, altered mental status, abdominal pain women, abdominal pain men, vaginal bleeding, musculoskeletal, weakness, fever, dyspnea, syncope, headache, dizziness, GI bleed, back pain, seizure, CVA, palpatations, m ental health)? @ -Differential Dyspnea: Coronary syndrome, arrhythmia, tamponade, asthma, COPD, pulmonary embolism, pneumonia, pneumothorax, pulmonary effusion, anaphylaxis, diabetic ketoacidosis, flailed chest, pulmonary contusion, diaphragmatic rupture, anemia, neuromuscular, this is not meant to be an all-inclusive list. EKG interpreted by me (3pts min.). @ -see above X-rays interpreted by me (1pt min.). @ -No acute processes CT interpreted by me (1pt min.). @ -None done U/S interpreted by me (1pt. min.). @ -None done What testing was considered but not performed or refused? (CT, X-rays, U/S, labs )? Why? @ -None What meds were considered but not given or refused? Why? @ -None Did you discuss the management of the patient with other professionals (professionals i.e. , PA, [facility] [employer] [facility], lab, RT, psych nurse, social service liaison, certified orthotist/pedorthist, teacher, special assets officer, correctional case manager)? Give summary @ -No Was smoking cessation discussed for >3mins.? @ -No Was critical care preformed (if so, how long)? @ -No Were there social determinants of health that impacted care today? How? (Homelessness, low income, unemployed, alcoholism, drug addiction, transportation, low edu. Level, literacy, decrease access to med. care, assisted, rehab)? @ -No Was there de-escalation of care discussed even if they declined (Discuss DNR or withdrawal of care, Hospice)? DNR status @ -No What co-morbidities impacted this encounter? (DM, HTN, Smoking, COPD, CAD, Cancer, CVA, ARF, Chemo, Hep., AIDS, mental health diagnosis, sleep apnea, morbid obesity)? @ -None Was patient admitted / discharged? Hospital course, mention meds given and route, prescriptions, significant lab abnormalities, going to OR and other pertinent info. @ -72-year-old male presents to the emergency department shortness of breath cough and wheezing. Clinical presentation consistent with URI with associated COPD exacerbation. Patient given improvement of symptoms. Patient given Decadron. Given breathing treatment. During the emergency department reevaluated treatment with significant improvement. Labs are unremarkable. X- ray shows no lung infiltrate. Patient we will discharge. 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 Undiagnosed new problem with uncertain prognosis? @ -No Drug Therapy requiring intensive monitoring for toxicity (Heparin, Nitro, Insulin, Cardizem)? @ -No Were any procedures done? @ -No Diagnosis/symptom? Acute, or Chronic, or Acute on Chronic? Uncomplicated (without systemic symptoms) or Complicated (systemic symptoms)? @ -COPD exacerbation Side effects of treatment? @ -No Exacerbation, Progression, or Severe Exacerbation? @ -No Poses a threat to life or bodily function? How? (Chest pain, [place], [place], pneumonia, PE, COPD, DKA, ARF, appy, cholecystitis, CVA, Diverticulitis, Homicidal, Suicidal, threat to staff... and all critical care pts) @ -No (Orville Harper) - Lab Data Lab Results 02/17/23 02/17/23 02/17/23 Range/Units 14:39 14:39 14:39 WBC 7.5 (3.8-10.6) k/uL RBC 4.65 (4.30-5.90) m/uL Hgb 14.6 (13.0-17.5) gm/dL Hct 44.1 (39.0-53.0) % MCV 94.9 (80.0-100.0) fL MCH 31.4 (25.0-35.0) pg MCHC 33.1 (31.0-37.0) g/dL RDW 13.4 (11.5-15.5) % Plt Count 241 (150-450) k/uL MPV 7.4 Neutrophils % 69 % Lymphocytes % 22 % Monocytes % 4 % Eosinophils % 4 % Basophils % 0 % Neutrophils # 5.2 (1.3-7.7) k/uL Lymphocytes # 1.6 (1.0-4.8) k/uL Monocytes # 0.3 (0-1.0) k/uL Eosinophils # 0.3 (0-0.7) k/uL Basophils # 0.0 (0-0.2) k/uL PT 10.1 (9.0-12.0) sec INR 0.9 (<1.2) APTT 23.9 (22.0-30.0) sec Sodium 141 (137-145) mmol/L Potassium 4.8 (3.5-5.1) mmol/L Chloride 103 (98-107) mmol/L Carbon Dioxide 26 (22-30) mmol/L Anion Gap 12 mmol/L BUN 19 (9-20) mg/dL Creatinine 0.92 (0.66-1.25) mg/dL Est GFR (CKD-EPI)AfAm >90 (>60 ml/min/1.73 sqM) Est GFR (CKD-EPI)NonAf 83 (>60 ml/min/1.73 sqM) Glucose 193 H (74-99) mg/dL Plasma Lactic Acid Satish (0.7-2.0) mmol/L Calcium 9.9 (8.4-10.2) mg/dL Total Bilirubin 0.6 (0.2-1.3) mg/dL AST 28 (17-59) U/L ALT 25 (4-49) U/L Alkaline Phosphatase 95 (38-126) U/L Troponin I (0.000-0.034) ng/mL NT-Pro-B Natriuret Pep 157 pg/mL Total Protein 7.9 (6.3-8.2) g/dL Albumin 4.7 (3.5-5.0) g/dL Influenza Type A (PCR) (Not Detectd) Influenza Type B (PCR) (Not Detectd) RSV (PCR) (Not Detectd) SARS-CoV-2 (PCR) (Not Detectd) 02/17/23 02/17/23 02/17/23 Range/Units 14:39 14:39 14:39 WBC (3.8-10.6) k/uL RBC (4.30-5.90) m/uL Hgb (13.0-17.5) gm/dL Hct (39.0-53.0) % MCV (80.0-100.0) fL MCH (25.0-35.0) pg MCHC (31.0-37.0) g/dL RDW (11.5-15.5) % Plt Count (150-450) k/uL MPV Neutrophils % % Lymphocytes % % Monocytes % % Eosinophils % % Basophils % % Neutrophils # (1.3-7.7) k/uL Lymphocytes # (1.0-4.8) k/uL Monocytes # (0-1.0) k/uL Eosinophils # (0-0.7) k/uL Basophils # (0-0.2) k/uL PT (9.0-12.0) sec INR (<1.2) APTT (22.0-30.0) sec Sodium (137-145) mmol/L Potassium (3.5-5.1) mmol/L Chloride (98-107) mmol/L Carbon Dioxide (22-30) mmol/L Anion Gap mmol/L BUN (9-20) mg/dL Creatinine (0.66-1.25) mg/dL Est GFR (CKD-EPI)AfAm (>60 ml/min/1.73 sqM) Est GFR (CKD-EPI)NonAf (>60 ml/min/1.73 sqM) Glucose (74-99) mg/dL Plasma Lactic Acid Satish 1.9 (0.7-2.0) mmol/L Calcium (8.4-10.2) mg/dL Total Bilirubin (0.2-1.3) mg/dL AST (17-59) U/L ALT (4-49) U/L Alkaline Phosphatase (38-126) U/L Troponin I <0.012 (0.000-0.034) ng/mL NT-Pro-B Natriuret Pep pg/mL Total Protein (6.3-8.2) g/dL Albumin (3.5-5.0) g/dL Influenza Type A (PCR) Not Detected (Not Detectd) Influenza Type B (PCR) Not Detected (Not Detectd) RSV (PCR) Not Detected (Not Detectd) SARS-CoV-2 (PCR) Not Detected (Not Detectd) Disposition <Gregoria Kennedy - Last Filed: 02/17/23 14:38> Is patient prescribed a controlled substance at d/c from ED?: No Time of Disposition: 19:07 <Orville Harper - Last Filed: 02/17/23 19:07> Clinical Impression: COPD exacerbation Disposition: HOME SELF-CARE Condition: Good Instructions (If sedation given, give patient instructions): COPD (Chronic Obstructive Pulmonary Disease) (ED) Prescriptions: methylPREDNISolone Dose Pack [Medrol Dose Pack] 4 mg PO DIRECTED #1 packet Albuterol Inhaler [Ventolin Hfa Inhaler] 1 - 2 puff INHALATION RT-Q6H PRN #1 each PRN Reason: Dyspnea Referrals: Sher Luong MD [STAFF PHYSICIAN] - 1-2 days
[2023-02-17 15:03] LABS: Basophils % (A) 0 %; Eosinophils # (A) 0.3 k/uL (0-0.7); Eosinophils % (A) 4 %; HCT 44.1 % (39.0-53.0); HGB 14.6 gm/dL (13.0-17.5); Lymphocytes # (A) 1.6 k/uL (1.0-4.8); Lymphocytes % (A) 22 %; MCH 31.4 pg (25.0-35.0); MCHC 33.1 g/dL (31.0-37.0); MCV 94.9 fL (80.0-100.0); Mean Platelet Volume 7.4; Monocytes # (A) 0.3 k/uL (0-1.0); Monocytes % (A) 4 %; Neutrophils # (A) 5.2 k/uL (1.3-7.7); Neutrophils % (A) 69 %; Platelet Count 241 k/uL (150-450); RBC 4.65 m/uL (4.30-5.90); RDW 13.4 % (11.5-15.5); WBC 7.5 k/uL (3.8-10.6)
[2023-02-17 15:14] LABS: ALT 25 U/L (4-49); AST 28 U/L (17-59); African American GFR (CKD) >90 (>60 ml/min/1.73 sqM); Albumin 4.7 g/dL (3.5-5.0); Alkaline Phosphatase 95 U/L (38-126); Anion Gap 12 mmol/L; Blood Urea Nitrogen 19 mg/dL (9-20); Calcium 9.9 mg/dL (8.4-10.2); Carbon Dioxide 26 mmol/L (22-30); Chloride 103 mmol/L (98-107); Glucose 193 mg/dL (74-99); Non-African American GFR(CKD) 83 (>60 ml/min/1.73 sqM); Potassium 4.8 mmol/L (3.5-5.1); Sodium 141 mmol/L (137-145); Total Bilirubin 0.6 mg/dL (0.2-1.3); Total Protein 7.9 g/dL (6.3-8.2)
[2023-02-17 15:19] LABS: INR 0.9 (<1.2); Partial Thromboplastin Time 23.9 sec (22.0-30.0); Prothrombin Time 10.1 sec (9.0-12.0)
[2023-02-17 15:23] LABS: NT-Pro-B-Type Natriuretic Pept 157 pg/mL
--- NOTE | 2023-02-17 15:45 | XR ---
EXAMINATION TYPE: XR chest 2V DATE OF EXAM: 02/17/2023 COMPARISON: NONE HISTORY: Shortness of breath TECHNIQUE: Frontal and lateral views of the chest are obtained. FINDINGS: The cardiac silhouette is mildly prominent. There is mild interstitial prominence which could reflect mild vascular congestion. There is a tiny left pleural effusion. There is no airspace consolidation or graft is no pneumothorax. The osseous structures are intact. IMPRESSION: Findings most consistent with mild CHF. Clinical correlation recommended.
[2023-02-17] MEDS ORDERED: dexAMETHasone 4 MG TAB PO STA (17:54)
[2023-02-17] MEDS ORDERED: IPRATROPIUM-ALBUTEROL 3 ML NEB INHALATION STA (17:54)
[2023-02-17 19:34] VITALS: BP 137/98; PULSE 100; RESP 16; TEMP 98.7
== END 2023-02-17 19:22 | disposition home or self-care (01) ==
LOC: EC 14:32
DX: J44.1 Chronic obstructive pulmonary disease with (acute) exacerbation (principal); I10 Essential (primary) hypertension; E78.5 Hyperlipidemia, unspecified; F17.200 Nicotine dependence, unspecified, uncomplicated; Z20.822 Contact with and (suspected) exposure to COVID-19; Z79.82 Long term (current) use of aspirin; Z79.899 Other long term (current) drug therapy; Z88.5 Allergy status to narcotic agent; Z90.49 Acquired absence of other specified parts of digestive tract; Z86.73 Personal history of transient ischemic attack (TIA), and cerebral infarction without residual deficits
CPT/HCPCS: 36415; 94640; 93005; 83880; 80053; 83605; 84484; 85025; 85610; 85730; 87636; 71046; 99285; J8540